=== PATIENT | female | born 1985 | race African-American/Black ===

== ENCOUNTER 2022-02-03 14:11 | Emergency (ER) | payer OTHER ==
[2022-02-03 14:35] VITALS: BP 96/50; PULSE 65; RESP 18; TEMP 98.6; BMI 25.9
[2022-02-03] MEDS ORDERED: DEXAMETHASONE LIQUID 0.5 MG/5 ML PO ONE (15:20)
[2022-02-03] MEDS ORDERED: DEXAMETHASONE SOD PHOSPHATE 10 MG/1 ML VIAL ONE (15:22)
== END 2022-02-03 15:29 ==
LOC: JERFT 14:11 → JER 14:11 → JERFT 15:29
DX: J02.9 Acute pharyngitis, unspecified (principal); J01.00 Acute maxillary sinusitis, unspecified
CPT/HCPCS: 87651; 99283-25